=== PATIENT | female | born 1980 | race Caucasian/White ===

== ENCOUNTER 2018-03-08 20:10 | Emergency (ER) | payer OTHER, MEDICAID, SELFPAY ==
[2018-03-08 20:17] VITALS: BP 117/80; PULSE 88; RESP 20; TEMP 36.9; O2SAT 100
--- NOTE | 2018-03-08 20:24 | ED.PREGNANCY ---
HPI - General Chief complaint: Vaginal Bleeding Stated complaint: 8WKS ,BLEEDING AND CRAMPING Time Seen by Provider: 03/08/18 20:23 Source: patient Mode of arrival: ambulatory Limitations: no limitations History of Present Illness HPI Narrative: The patient is . She is currently 8 weeks . She had an ultrasound 25 February 2018 confirming a 6 week IUP at that time. She developed vaginal spotting 2 days ago. Today she developed cramping and increased vaginal bleeding. She is feeling quite uncomfortable. She has no fever or chills. She denies dysuria. She has no nausea, vomiting or diarrhea. She denies vaginal discharge, she simply has vaginal bleeding. 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 Patient : Yes Related Data Previous Rx's Medication Instructions Recorded hydrocodone-acetaminophen [[place]] 1 tab PO Q4-6H PRN #5 tab 03/08/18 Allergies Allergy/AdvReac Type Severity Reaction Status Date / Time No Known Drug Allergies Allergy Verified 03/08/18 20:20 Review of Systems Constitutional Reports as per HPI, Denies body ache(s), Denies chills and Denies fever(s) Cardiovascular Denies chest pain, Denies rapid heart rate, Denies edema and Denies dyspnea Respiratory Denies dyspnea Gastrointestinal Gastrointestinal: Denies diarrhea and Denies vomiting Genitourinary Reports abnormal vaginal bleeding and Denies dysuria Musculoskeletal Denies back pain and Denies joint swelling Integumentary/Breasts Denies lesions and Denies rash PMFSH - Past Medical History Medical history: Reports non-contributory Back pain Idiopathic intracranial hypertension Surgical history: Reports cholecystectomy and other (Breast reduction. 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 History (See HPI) Patient : Yes Family history: Reports no significant family history Exam Initial Vital Signs Initial Vital Signs: Vital Signs Temperature 98.5 F 03/08/18 20:17 Pulse Rate 88 03/08/18 20:17 Respiratory Rate 20 03/08/18 20:17 Blood Pressure 117/80 03/08/18 20:17 Pulse Oximetry 100 03/08/18 20:17 Const General: cooperative, healthy appearing, well developed and well hydrated [facility] Head: normocephalic and atraumatic Resp Effort & Inspection: normal respiratory effort Auscultation: clear to auscultation bilaterally Cardio Rate: regular rate Rhythm: regular rhythm Heart Sounds: S1 normal and S2 normal GI Inspection: normal to inspection, no edema and non-distended Palpation: soft and no hepatosplenomegaly Percussion: normal to percussion Auscultation: normal bowel sounds Back/Spine/Pelvis Cervical Spine: No cervical muscular tenderness Skin Rashes: no rashes Neuro General: alert, oriented x3 and no focal motor deficits Course Orders Ordered: ED Orders 03/08/18 20:31 US OB <= 14 weeks fetus Stat 03/08/18 21:25 ABO RH Type Stat CBC [Complete Blood Count AUTO DIFF] Stat Discontinued Medications Hydrocodone Bitart/Acetaminophen (Vicodin Prepack) 1 bottle MISC SEEINSTR ONE Stop: 03/08/18 21:44 Vital Signs - 8 hr 03/08/18 20:17 Temperature 98.5 F Pulse Rate 88 Respiratory Rate 20 Blood Pressure 117/80 Pulse Oximetry 100 MDM - OB/Uterine Contractions Lab Data Result diagrams: 03/08/18 21:25 Lab Results 03/08/18 03/08/18 Range/Units 21:25 21:25 WBC 8.4 (4.5-11.0) X10^3/uL RBC 4.01 (4.0-5.2) X10^6/uL Hgb 12.2 (12.0-16.0) g/dL Hct 36.7 (36-46) % MCV 91.4 (80-100) fL MCH 30.5 (26-34) PG MCHC 33.4 (30-36) % RDW 14.3 (11.6-14.8) % Plt Count 249 (150-400) X10^3/uL Neut % (Auto) 63.4 (50-75) % Lymph % (Auto) 26.3 (25-40) % [place] % (Auto) 8.4 (3-14) % Eos % (Auto) 1.1 L (2-4) % Baso % (Auto) 0.8 (0-2) % Neut # (Auto) 5400 ([id number]) /uL Blood Type O Positive Imaging Data OB US:: Radiologist's impression: Intrauterine demise at 6+ 3 weeks. No cardiac activity is seen. Discharge Plan Departure Patient Disposition: Home, Self-Care Clinical Impression: Incomplete miscarriage Instructions: Miscarriage Activity Restrictions/Additional Instructions: Advil 3 tablets every 6 hours as needed. [place] every 4 hours as needed for added pain control. Follow up with her doctor as planned. Return here if necessary. Prescriptions: New hydrocodone-acetaminophen [[place]] 5-325 mg tablet 1 tab PO Q4-6H PRN (Reason: pain) Qty: 5 RF: 0
--- NOTE | 2018-03-08 20:31 | DI.US.S_ITS ---
PROCEDURE: US OB <= 14 WEEKS FETUS INDICATIONS: BLEEDING AT 8 WEEKS GESTATION OUTSIDE/PRIOR DATING DATA: Last menstrual period (LMP): Unknown LMP-based estimated date of delivery (ALONDRA): 10/21/18 First dating scan (date and location): 02/25/18. Estimated date of delivery (ALONDRA) from first dating scan: 10/21/18 TECHNIQUE: Real-time scanning was performed of the fetus and maternal pelvic organs, with image documentation. Endovaginal scanning was also performed to better visualize the fetus and maternal ovaries. COMPARISON: [facility], US, US OB < 14 WEEKS + OB TRANSVAG, 02/25/2018, 12:32. FINDINGS: Embryo: Intrauterine gestational sac is identified measuring 1.6 cm corresponding to 6 weeks 3 days. There is heterogeneous signal identified within the gestational sacs. However, the well-defined crown-rump length identified on prior exam is not as well delineated on today's exam. In addition, no heart tones are identified. Measurement variability in dating: +/- 4 weeks by LMP, +/- 7 days by mean sac diameter (use before 6 weeks gestation if crown-rump length not able to be measured), +/- 5 days by crown-rump length (up to 8 weeks 6 days gestation), +/- 7 days by crown-rump length (up to 13 weeks 6 days gestation). Maternal organs: Ovaries are unremarkable. Limited images through the kidneys demonstrate no hydronephrosis. IMPRESSION: 1. Poor delineation of pole as identified on prior exam as well as absence of heart tones. Findings are most suggestive of demise. Recommend correlation to beta-hCG levels Dictated by: Di Beltran M.D. on 03/08/2018 at 21:35 Approved by: Di Beltran M.D. on 03/08/2018 at 21:42
[2018-03-08 21:39] LABS: Add Manual Diff / Slide Review NO; Basophils Percent Auto 0.8 % (0-2); Eosinophils Percent Auto 1.1 % (2-4); Hematocrit 36.7 % (36-46); Hemoglobin 12.2 g/dL (12.0-16.0); Lymphocytes Percent Auto 26.3 % (25-40); Mean Corpuscular HGB Conc 33.4 % (30-36); Mean Corpuscular Hemoglobin 30.5 PG (26-34); Mean Corpuscular Volume 91.4 fL (80-100); Monocytes Percent Auto 8.4 % (3-14); Neutrophils Absolute Auto 5400 /uL (3000-5900); Neutrophils Percent Auto 63.4 % (50-75); Platelet Count 249 X10^3/uL (150-400); Red Blood Cell Count 4.01 X10^6/uL (4.0-5.2); Red Cell Distribution Width 14.3 % (11.6-14.8); White Blood Cell Count 8.4 X10^3/uL (4.5-11.0)
[2018-03-08] MEDS: HYDROCODONE/ACET 5/325 PREPACK 1 BOTTLE MISC (21:55)
[2018-03-08 22:19] VITALS: BP 130/88; PULSE 76; RESP 20; O2SAT 100
== END 2018-03-08 22:19 | disposition home or self-care (01) ==
PROVIDERS: Emergency Provider Emergency Medicine
DX: O03.4 Incomplete spontaneous abortion without complication (principal)
CPT/HCPCS: 36415; 76801; 76817; 81003; 81025; 85025; 86900; 86901; 99282; 99284